=== PATIENT | female | born 1985 | race Caucasian/White ===

== ENCOUNTER 2017-09-20 12:32 | Observation (INO) | payer OTHER ==
[2017-09-20 13:41] LABS: Appearance,Urine Cloudy (Clear); Bilirubin,Urine Negative (Negative); Blood,Urine Large (Negative); Color,Urine Yellow; Glucose,Urine (UA) Negative (Negative); Ketones,Urine 1+ (Negative); Leukocyte Esterase,Urine Small (Negative); Mucus,Urine Few /hpf; Nitrite,Urine Negative (Negative); PH, Urine 5.5 (5.0-8.0); Protein,Urine Trace (Negative); RBC,Urine 26 /hpf (0-5); Specific Gravity,Urine 1.022 (1.001-1.035); Squamous Epithelial Cell,Urine 10 /hpf (0-4); Urobilinogen,Urine <2.0 mg/dL (<2.0); WBC,Urine 4 /hpf (0-5)
[2017-09-20 13:47] LABS: ALT 31 U/L (9-52); AST 17 U/L (14-36); Albumin 4.6 g/dL (3.5-5.0); Alkaline Phosphatase 63 U/L (38-126); Anion Gap 13 mmol/L; Blood Urea Nitrogen 10 mg/dL (7-17); Calcium 9.5 mg/dL (8.4-10.2); Carbon Dioxide 27 mmol/L (22-30); Chloride 98 mmol/L (98-107); Glucose 104 mg/dL (74-99); Potassium 4.2 mmol/L (3.5-5.1); Sodium 138 mmol/L (137-145); Total Bilirubin 0.9 mg/dL (0.2-1.3)
[2017-09-20 13:48] LABS: Basophils % (A) 0 %; Eosinophils # (A) 0.1 k/uL (0-0.7); Eosinophils % (A) 1 %; HCT 43.2 % (34.0-46.0); HGB 15.5 gm/dL (11.4-16.0); Lymphocytes % (A) 9 %; MCHC 35.8 g/dL (31.0-37.0); MCV 89.4 fL (80.0-100.0); Monocytes # (A) 0.3 k/uL (0-1.0); Monocytes % (A) 3 %; Neutrophils # (A) 9.6 k/uL (1.3-7.7); Neutrophils % (A) 87 %; Platelet Count 206 k/uL (150-450); RBC 4.83 m/uL (3.80-5.40); RDW 12.1 % (11.5-15.5)
[2017-09-20] MEDS ORDERED: RX INFO: IV CONTRAST WAS GIVEN 1 EACH MISC MISCELLANE PRN (14:57)
[2017-09-20] MEDS ORDERED: SODIUM CHLORIDE 0.9% 1,000 ML IV STA (15:26)
[2017-09-20] MEDS ORDERED: ACETAMINOPHEN IV (For NPO) 1,000 MG in EMPTY BAG 1 BAG IVPB STA (15:26)
--- NOTE | 2017-09-20 15:27 | ED ---
General Adult HPI - General Chief complaint: Abdominal Pain Stated complaint: Abd Pain Time Seen by Provider: 09/20/17 14:48 Source: patient, RN notes reviewed Mode of arrival: ambulatory - History of Present Illness Initial comments: Patient is a 31-year-old female who presents emergency room today with a chief complaint of right-sided abdominal pain times one day. Patient does describe it as a "sharp and stabbing" type pain. Patient denies any radiation. Patient does admit that she family physician who advised come here to the emergency room to rule out appendicitis. Patient has mid to both fever and chills. Denies any other complaints or associated symptoms. Patient denies any recent fever, chills, shortness of breath, chest pain, numbness or tingling, dysuria or hematuria, constipation or diarrhea, headaches or visual changes, or any other complaints. - Related Data Home Medications Medication Instructions Recorded Confirmed No Known Home Medications [No 09/20/17 09/20/17 Known Home Medications] Allergies Allergy/AdvReac Type Severity Reaction Status Date / Time No Known Allergies Allergy Verified 09/20/17 14:58 Review of Systems ROS Statement: Those systems with pertinent positive or pertinent negative responses have been documented in the HPI. ROS Other: All systems not noted in ROS Statement are negative. Past Medical History Past Medical History: No Reported History History of Any Multi-Drug Resistant Organisms: None Reported Past Surgical History: No Surgical Hx Reported Past Psychological History: No Psychological Hx Reported Smoking Status: Never smoker Past Alcohol Use History: Occasional Past Drug Use History: None Reported General Exam - General Exam Comments Initial Comments: General: The patient is awake and alert, in no distress, and does not appear acutely ill. Eye: Pupils are equal, round and reactive to light, extra-ocular movements are intact. No nystagmus. There is normal conjunctiva bilaterally. No signs of icterus. Ears, nose, mouth and throat: There are moist mucous membranes and no oral lesions. Neck: The neck is supple, there is no tenderness or JVD. Cardiovascular: There is a regular rate and rhythm. No murmur, rub or gallop is appreciated. Respiratory: Lungs are clear to auscultation, respirations are non-labored, breath sounds are equal. No wheezes, stridor, rales, or rhonchi. Gastrointestinal:The abdomen. Normal bowel sounds. Abdomen soft on palpation. Patient does have tenderness in the right lower quadrant. No rebound tenderness. No guarding. No CVA tenderness. Musculoskeletal: Normal ROM, no tenderness. Strength 5/5. Sensation intact. Pulses equal bilaterally 2+. Neurological: A&O x 3. CN II-XII intact, There are no obvious motor or sensory deficits. Coordination appears grossly intact. Speech is normal. Skin: Skin is warm and dry and no rashes or lesions are noted. Psychiatric: Cooperative, appropriate mood & affect, normal judgment. Course Vital Signs 09/20/17 09/20/17 12:43 16:04 Temperature 100.1 F H Pulse Rate 118 H 117 H Respiratory 18 18 Rate Blood Pressure 130/76 117/69 O2 Sat by Pulse 98 96 Oximetry Medical Decision Making - Medical Decision Making The patient's CT shows 1. Positive findings of acute appendicitis with moderate surrounding inflammation. Mild to moderate pelvic free fluid likely reactive no abscess or free air. 2. Prominent fluid-filled small bowel loops and liquid stool in the ascending colon. These likely represent a reactive ileus. 3. Hepatomegaly and hepatic the ptosis. 4. Mild splenomegaly. Case discussed with attending physician Dr. Jiang who did discuss case with on- call surgeon Dr. Pereira. - Lab Data Result diagrams: 09/20/17 12:55 Lab Results 09/20/17 09/20/17 09/20/17 Range/Units 12:55 12:55 12:55 Sodium 138 (137-145) mmol/L Potassium 4.2 (3.5-5.1) mmol/L Chloride 98 (98-107) mmol/L Carbon Dioxide 27 (22-30) mmol/L Anion Gap 13 mmol/L BUN 10 (7-17) mg/dL Creatinine 0.69 (0.52-1.04) mg/dL Est GFR (CKD-EPI)AfAm >90 (>60 ml/min/1.73 sqM) Est GFR (CKD-EPI)NonAf >90 (>60 ml/min/1.73 sqM) Glucose 104 H (74-99) mg/dL Plasma Lactic Acid Brennon (0.7-2.0) mmol/L Calcium 9.5 (8.4-10.2) mg/dL Total Bilirubin 0.9 (0.2-1.3) mg/dL AST 17 (14-36) U/L ALT 31 (9-52) U/L Alkaline Phosphatase 63 (38-126) U/L Total Protein 8.0 (6.3-8.2) g/dL Albumin 4.6 (3.5-5.0) g/dL Urine Color Yellow Urine Appearance Cloudy H (Clear) Urine pH 5.5 (5.0-8.0) Ur Specific Sloan 1.022 (1.001-1.035) Urine Protein Trace H (Negative) Urine Glucose (UA) Negative (Negative) Urine Ketones 1+ H (Negative) Urine Blood Large H (Negative) Urine Nitrite Negative (Negative) Urine Bilirubin Negative (Negative) Urine Urobilinogen <2.0 (<2.0) mg/dL Ur Leukocyte Esterase Small H (Negative) Urine RBC 26 H (0-5) /hpf Urine WBC 4 (0-5) /hpf Ur Squamous Epith Cells 10 H (0-4) /hpf Urine Mucus Few H (None) /hpf Urine HCG, Qual Not Detected (Not Detectd) 09/20/17 Range/Units 12:55 Sodium (137-145) mmol/L Potassium (3.5-5.1) mmol/L Chloride (98-107) mmol/L Carbon Dioxide (22-30) mmol/L Anion Gap mmol/L BUN (7-17) mg/dL Creatinine (0.52-1.04) mg/dL Est GFR (CKD-EPI)AfAm (>60 ml/min/1.73 sqM) Est GFR (CKD-EPI)NonAf (>60 ml/min/1.73 sqM) Glucose (74-99) mg/dL Plasma Lactic Acid Brennon 1.5 (0.7-2.0) mmol/L Calcium (8.4-10.2) mg/dL Total Bilirubin (0.2-1.3) mg/dL AST (14-36) U/L ALT (9-52) U/L Alkaline Phosphatase (38-126) U/L Total Protein (6.3-8.2) g/dL Albumin (3.5-5.0) g/dL Urine Color Urine Appearance (Clear) Urine pH (5.0-8.0) Ur Specific Sloan (1.001-1.035) Urine Protein (Negative) Urine Glucose (UA) (Negative) Urine Ketones (Negative) Urine Blood (Negative) Urine Nitrite (Negative) Urine Bilirubin (Negative) Urine Urobilinogen (<2.0) mg/dL Ur Leukocyte Esterase (Negative) Urine RBC (0-5) /hpf Urine WBC (0-5) /hpf Ur Squamous Epith Cells (0-4) /hpf Urine Mucus (None) /hpf Urine HCG, Qual (Not Detectd) Disposition Clinical Impression: Acute appendicitis Disposition: ADMITTED IP TO THIS HOSP Condition: Good Referrals: Mohsen Castro MD [Primary Care Provider] - 1-2 days Time of Disposition: 16:10
--- NOTE | 2017-09-20 15:37 | CT ---
EXAMINATION TYPE: CT abdomen pelvis w con DATE OF EXAM: 09/20/2017 COMPARISON: NONE HISTORY: 31-year-old female with abdominal pain TECHNIQUE: Contiguous axial scanning of the abdomen and pelvis following administration of 100 ml Omn ipaque 300 IV contrast. Delayed images through the kidneys and coronal/sagittal reconstructions perf ormed. CT DLP: 1519 mGycm Automated exposure control for dose reduction was used. FINDINGS: The heart is normal size without pericardial effusion. Lung bases clear without pleural effusion. Liver enlarged measuring 21.5 cm craniocaudal with diffuse low-attenuation. Portal venous system is p atent. No biliary ductal dilatation. Gallbladder, adrenal glands, and pancreas appear within normal limits. Spleen mildly enlarged at 14.0 cm, axial image 23. No dilated small bowel, free fluid, or free air. Prominent fluid-filled small bowel loops are present in the mid and lower abdomen. Numerous prominent right lower quadrant mesenteric lymph nodes measure up to 6 to 7 mm and are border line enlarged. There is thickening of the appendix measuring up to 1.1 cm with surrounding inflammatory fat strandin g and edema. There is liquid stool in the cecum and ascending colon. Bladder partially urine distended. Uterus and ovaries are visualized. Mild to moderate pelvic free fl uid, right greater than left. No pelvic lymphadenopathy. Bones: No osseous destructive process. IMPRESSION: 1. POSITIVE FINDINGS OF ACUTE APPENDICITIS WITH MODERATE SURROUNDING INFLAMMATION. MILD TO MODERATE P ELVIC FREE FLUID LIKELY REACTIVE. NO ABSCESS OR FREE AIR. 2. PROMINENT FLUID-FILLED SMALL BOWEL LOOPS AND LIQUID STOOL IN THE ASCENDING COLON. THESE LIKELY REPRESENT A REACTIVE ILEUS. 3. HEPATOMEGALY (21.5 CM) AND HEPATIC STEATOSIS. 4. MILD SPLENOMEGALY (14.0 CM).
[2017-09-20] MEDS ORDERED: ONDANSETRON 4 MG/2 ML VIAL IVP PRN (16:05)
[2017-09-20] MEDS ORDERED: MORPHINE SULFATE 4 MG/ML SYRINGE IV PRN (16:05)
[2017-09-20] MEDS ORDERED: NALOXONE 0.4 MG/ML 1 ML VIAL IV PRN (16:05)
--- NOTE | 2017-09-20 17:33 | P.GSHP ---
History of Present Illness H&P Date: 09/20/17 Chief Complaint: Abdominal pain The patient's a 31-year-old female who presented to the emergency department with abdominal pain. It started yesterday. With a sharp stabbing pain. He got progressively worse so she came in today and a computed tomography scan was done showing appendicitis. She's had a fever and chills. No nausea or vomiting. No diarrhea or constipation. - Review of Systems All systems: negative Past Medical History Past Medical History: No Reported History History of Any Multi-Drug Resistant Organisms: None Reported Past Surgical History: No Surgical Hx Reported Additional Past Surgical History / Comment(s): No previous abdominal surgery Past Psychological History: No Psychological Hx Reported Smoking Status: Never smoker Past Alcohol Use History: Occasional Past Drug Use History: None Reported Medications and Allergies Home Medications Medication Instructions Recorded Confirmed Type No Known Home Medications [No 09/20/17 09/20/17 History Known Home Medications] Allergies Allergy/AdvReac Type Severity Reaction Status Date / Time No Known Allergies Allergy Verified 09/20/17 14:58 Surgical - Exam Osteopathic Statement: *. No significant issues noted on an osteopathic structural exam other than those noted in the History and Physical/Consult. Vital Signs Temp Pulse Resp BP Pulse Ox 100.1 F H 118 H 18 130/76 98 09/20/17 12:43 09/20/17 12:43 09/20/17 12:43 09/20/17 12:43 09/20/17 12:43 - General well developed, well nourished, no distress - Eyes normal ocular movement - ENT normal mucosa - Neck trachea midline - Respiratory normal respiratory effort, clear to auscultation - Cardiovascular Rhythm: regular - Abdomen Abdomen: soft, tender (Right lower quadrant), guarding Hernia: no umbilical Results - Labs 09/20/17 12:55 Abnormal Lab Results - Last 24 Hours (Table) 09/20/17 09/20/17 Range/Units 12:55 12:55 Glucose 104 H (74-99) mg/dL Urine Appearance Cloudy H (Clear) Urine Protein Trace H (Negative) Urine Ketones 1+ H (Negative) Urine Blood Large H (Negative) Ur Leukocyte Esterase Small H (Negative) Urine RBC 26 H (0-5) /hpf Ur Squamous Epith Cells 10 H (0-4) /hpf Urine Mucus Few H (None) /hpf Diabetes panel 09/20/17 Range/Units 12:55 Sodium 138 (137-145) mmol/L Potassium 4.2 (3.5-5.1) mmol/L Chloride 98 (98-107) mmol/L Carbon Dioxide 27 (22-30) mmol/L BUN 10 (7-17) mg/dL Creatinine 0.69 (0.52-1.04) mg/dL Glucose 104 H (74-99) mg/dL Calcium 9.5 (8.4-10.2) mg/dL AST 17 (14-36) U/L ALT 31 (9-52) U/L Alkaline Phosphatase 63 (38-126) U/L Total Protein 8.0 (6.3-8.2) g/dL Albumin 4.6 (3.5-5.0) g/dL Calcium panel 09/20/17 Range/Units 12:55 Calcium 9.5 (8.4-10.2) mg/dL Albumin 4.6 (3.5-5.0) g/dL Pituitary panel 09/20/17 Range/Units 12:55 Sodium 138 (137-145) mmol/L Potassium 4.2 (3.5-5.1) mmol/L Chloride 98 (98-107) mmol/L Carbon Dioxide 27 (22-30) mmol/L BUN 10 (7-17) mg/dL Creatinine 0.69 (0.52-1.04) mg/dL Glucose 104 H (74-99) mg/dL Calcium 9.5 (8.4-10.2) mg/dL Adrenal panel 09/20/17 Range/Units 12:55 Sodium 138 (137-145) mmol/L Potassium 4.2 (3.5-5.1) mmol/L Chloride 98 (98-107) mmol/L Carbon Dioxide 27 (22-30) mmol/L BUN 10 (7-17) mg/dL Creatinine 0.69 (0.52-1.04) mg/dL Glucose 104 H (74-99) mg/dL Calcium 9.5 (8.4-10.2) mg/dL Total Bilirubin 0.9 (0.2-1.3) mg/dL AST 17 (14-36) U/L ALT 31 (9-52) U/L Alkaline Phosphatase 63 (38-126) U/L Total Protein 8.0 (6.3-8.2) g/dL Albumin 4.6 (3.5-5.0) g/dL - Imaging CT scan - abdomen: report reviewed, image reviewed Assessment and Plan (1) Acute appendicitis Current Visit: Yes Status: Acute Code(s): K35.80 - UNSPECIFIED ACUTE APPENDICITIS SNOMED Code(s): 44692764 Plan: Plan is laparoscopic appendectomy possible open. The procedure risk and complications were discussed. Questions were encouraged and answered. The usual postoperative course was discussed. Further recommendations will be based on whether this is acute appendicitis or if there is any evidence of gangrenous changes or perforation.
[2017-09-20] MEDS ORDERED: PIPERACILLIN-TAZOBACTAM 3.375 GM in DEXTROSE/WATER 1 50ML.BAG IVPB ONE (18:00)
[2017-09-20] MEDS ORDERED: fentaNYL (PF) 50 MCG/ML 2 ML AMP ONE (19:23)
[2017-09-20] MEDS ORDERED: KETOROLAC 30 MG/ML 1 ML VIAL ONE (19:23)
[2017-09-20] MEDS ORDERED: NEOSTIGMINE 1 MG/ML 10 ML VIAL ONE (19:23)
[2017-09-20] MEDS ORDERED: GLYCOPYRROLATE 0.2 MG/ML 2 ML VIAL ONE (19:23)
[2017-09-20] MEDS ORDERED: DEXAMETHASONE SOD PHOS (MDV) 100 MG/10 ML VIAL ONE (19:23)
[2017-09-20] MEDS ORDERED: MIDAZOLAM 2 MG/2 ML VIAL ONE (19:23)
[2017-09-20] MEDS ORDERED: ONDANSETRON 4 MG/2 ML VIAL ONE (19:23)
[2017-09-20] MEDS ORDERED: LIDOCAINE 1% INJ 10MG/ML (20 ML MDV) ONE (19:23)
[2017-09-20] MEDS ORDERED: LACTATED RINGERS 1,000 ML IV ONE (19:23)
[2017-09-20] MEDS ORDERED: ROCURONIUM BROMIDE 10 MG/ML 10 ML VIAL IV ONE (19:23)
[2017-09-20] MEDS ORDERED: SUCCINYLCHOLINE CHLORIDE 100 MG/5 ML SYR IV ONE (19:23)
[2017-09-20] MEDS ORDERED: PROPOFOL 10 MG/ML 20 ML VIAL IV ONE (19:23)
[2017-09-20] MEDS ORDERED: BUPIVACAINE (PF) 0.25% 30 ML VIAL SQ ONE ×2 (19:46)
[2017-09-20] MEDS ORDERED: HYDROcodone/APAP 5-325MG 1 EACH TAB PO PRN ×2 (20:13)
[2017-09-20] MEDS ORDERED: MORPHINE SULFATE 4 MG/ML SYRINGE IVP PRN (20:13)
[2017-09-20] MEDS ORDERED: D5-0.45% NACL WITH KCL 20MEQ/L 1,000 ML IV SCH (20:15)
--- NOTE | 2017-09-20 20:18 | P.OP ---
Date of Procedure: 09/20/17 Preoperative Diagnosis: Appendicitis Postoperative Diagnosis: Appendicitis Procedure(s) Performed: Laparoscopic appendectomy Anesthesia: YAMEL Surgeon: Hermelinda Pereira Estimated Blood Loss (ml): 10 Pathology: other (Appendix) Condition: stable Disposition: PACU Indications for Procedure: Patient presented to the emergency department with pain. Workup indicated acute appendicitis Operative Findings: Acute appendicitis. Some inflammation of the peritoneum but no evidence of obvious perforation of the appendix or gangrenous changes. The liver, diaphragm , large and small bowel were grossly normal where they were seen. Description of Procedure: The patient's taken the operative suite where she is prepped and draped in usual sterile manner under general endotracheal anesthetic. An infraumbilical incision was made. A varies needle was placed into the abdominal cavity. Pneumoperitoneum was established with CO2 gas. Sites are chosen for accessory trochars needs are placed through small skin incisions. The appendix is grasped and retracted towards the anterior abdominal wall. The mesoappendix was divided with harmonic scissors down to the base. The cecum was mobilized somewhat along the white line of Toldt. The base the appendix was a little wide so it was ligated with a Endo VICKY stapler. The appendix was placed into a specimen retrieval bag. The paracolic gutter and pelvis were then irrigated and aspirated. The pneumoperitoneum was released. The trochars were removed. The fascia at the umbilicus was closed with 0 Vicryl. The skin incisions were closed with 4-0 Vicryl in a subcuticular manner. Steri-Strips and dressings were applied. She tolerated the procedure without difficulty and was taken recovery room in satisfactory condition. According to or personnel, all counts are correct.
[2017-09-20 20:44] VITALS: RESP 16
[2017-09-20] MEDS ORDERED: METOCLOPRAMIDE 5 MG/ML 2 ML VIAL IVP ONE (21:04)
[2017-09-20] MEDS: KETOROLAC 30 MG/ML 1 ML VIAL IVP SCH (22:07)
[2017-09-20] MEDS: FAMOTIDINE 20 MG TAB PO SCH (22:07)
[2017-09-20 22:14] VITALS: BMI 36.5
[2017-09-20 23:49] VITALS: PULSE 103
[2017-09-21] MEDS: KETOROLAC 30 MG/ML 1 ML VIAL IVP SCH ×2 (01:20→07:15)
[2017-09-21 07:12] VITALS: BP 122/79; TEMP 98.6
[2017-09-21] MEDS: FAMOTIDINE 20 MG TAB PO SCH (07:15)
[2017-09-21 07:32] LABS: Basophils % (A) 0 %; Eosinophils % (A) 0 %; HCT 39.2 % (34.0-46.0); HGB 13.4 gm/dL (11.4-16.0); Lymphocytes # (A) 0.9 k/uL (1.0-4.8); Lymphocytes % (A) 9 %; MCH 31.1 pg (25.0-35.0); MCHC 34.1 g/dL (31.0-37.0); MCV 91.1 fL (80.0-100.0); Monocytes # (A) 0.6 k/uL (0-1.0); Monocytes % (A) 6 %; Neutrophils # (A) 9.1 k/uL (1.3-7.7); Neutrophils % (A) 84 %; Platelet Count 211 k/uL (150-450); RDW 12.2 % (11.5-15.5); WBC 10.8 k/uL (3.8-10.6)
[2017-09-21 07:53] LABS: ALT 31 U/L (9-52); AST 20 U/L (14-36); Albumin 3.8 g/dL (3.5-5.0); Alkaline Phosphatase 54 U/L (38-126); Anion Gap 12 mmol/L; Blood Urea Nitrogen 11 mg/dL (7-17); Calcium 8.7 mg/dL (8.4-10.2); Carbon Dioxide 24 mmol/L (22-30); Chloride 105 mmol/L (98-107); Glucose 124 mg/dL (74-99); Potassium 4.1 mmol/L (3.5-5.1); Sodium 141 mmol/L (137-145); Total Bilirubin 0.4 mg/dL (0.2-1.3); Total Protein 6.9 g/dL (6.3-8.2)
--- NOTE | 2017-09-21 17:49 | P.DS ---
Providers Date of admission: 09/20/17 17:08 Expected date of discharge: 09/21/17 Attending physician: Hermelinda Pereira Primary care physician: Mohsen Castro - Discharge Diagnosis(es) (1) Acute appendicitis Status: Acute Hospital Course: The patient presented to the emergency department with abdominal pain. Workup is consistent with appendicitis. She was taken the OR where she underwent laparoscopic appendectomy. By postop day 1 she was doing well. Pain was improved. No nausea or vomiting. Tolerating a diet. Was felt to be stable for discharge. Pertinent Studies: Computed tomography scan Procedures: Laparoscopic appendectomy Patient Condition at Discharge: Good Plan - Discharge Summary New Discharge Prescriptions: New Ciprofloxacin HCl [Cipro] 500 mg PO Q12HR #10 tablet traMADol HCL [Conzip] 100 - 200 mg PO Q6HR #20 cap Discharge Medication List Ciprofloxacin HCl [Cipro] 500 mg PO Q12HR #10 tablet 09/21/17 [Rx] traMADol HCL [Conzip] 100 - 200 mg PO Q6HR #20 cap 09/21/17 [Rx] Follow up Appointment(s)/Referral(s): Hermelinda Pereira DO [Doctor of Osteopathic Medicine] - 10/05/17 1:00 pm Mohsen Castro MD [Primary Care Provider] - 09/25/17 11:30 am Patient Instructions/Handouts: Laparoscopic Appendectomy (DC) Activity/Diet/Wound Care/Special Instructions: Diet as tolerated. The dressings may be removed on Monday then you may shower. Light dressing as needed to the incisions. No tub baths for 1 week. You may return to work Monday with no restrictions. He may take Tylenol or Motrin instead of the pain medications. All if you develop fevers, chills, nausea, vomiting, return of abdominal pain, concerns about the wounds. Discharge Disposition: HOME SELF-CARE
== END 2017-09-21 10:20 | disposition home or self-care (01) ==
LOC: EC 12:32 → 3SUR 17:08
PROVIDERS: ADMIT Surgery; ATTEND Surgery
DX: K35.80 Unspecified acute appendicitis (principal)
CPT/HCPCS: 36415; 88304; 80053 ×2; 83605; 85025 ×2; 81001; 81025; 87040; 74177; 44970; 99285; 96365; G0378 ×2; J2250; J2710; J2765; J2405; J2001; J3010; J1885 ×2; Q9967; J1100; J0131; J0330; J2704